=== PATIENT | female | born 1985 | race Caucasian/White ===

== ENCOUNTER → 2016-08-29 | Outpatient (CLI) | payer BC ==
[~2016-08-29] MED LIST: LEVOIUD INT UTER; MULTTAB58 PO
== END | disposition home or self-care (01) ==
LOC: C.LABSPEC 17:28
PROVIDERS: ATTEND Obstetrics & Gynecology
DX: N89.8 Other specified noninflammatory disorders of vagina (principal)

== ENCOUNTER → 2018-01-25 | Outpatient (CLI) | payer BC ==
[~2018-01-25] MED LIST changes: +LEVO1IUD2 INT UTER; -LEVOIUD INT UTER
== END | disposition home or self-care (01) ==
LOC: C.LAB 10:31
PROVIDERS: ATTEND Obstetrics & Gynecology
DX: N93.9 Abnormal uterine and vaginal bleeding, unspecified (principal); N92.6 Irregular menstruation, unspecified

== ENCOUNTER → 2018-02-05 | Outpatient (CLI) | payer BC | END | disposition home or self-care (01) | LOC: C.PAPS 13:25 | PROVIDERS: ATTEND Obstetrics & Gynecology | DX: Z01.419 Encounter for gynecological examination (general) (routine) without abnormal findings (principal) ==

== ENCOUNTER 2021-04-08 05:29 | Inpatient (IN) ==
--- NOTE | 2021-03-29 09:54 | Anesthesiology Consultation ---
Date of Service March 29, 2021 Assessment & Plan (1) Encounter for pre-operative examination: Chart Review Chart Review: Acceptable Risk for Surgery and Patient NOT seen in Pre Admission Testing Consults Requested none History Surgery Operation Date: 04/08/21 07:30 Proposed Procedures p Section (Delivery of Baby Through Abdominal Incision) - Rabia Jackson MD, FACOG s Bilateral Tubal Ligation - Rabia Jackson MD, FACOG Height/Weight Height: 5 ft 4 in Weight: 107.048 kg Allergies Allergy/AdvReac Type Severity Reaction Status Date / Time No Known Drug Allergies Allergy Verified 03/28/21 15:19 Medications Home Medications Medication Instructions Recorded Confirmed Last Taken prenat.vits,natividad,[id number] 1 tab PO QAM 09/03/20 03/28/21 03/25/21 0800 aspirin 81 mg tablet,delayed 81 mg PO QAM 12/03/20 03/28/21 03/25/21 08:00 release (Aspirin Low Dose) acetone (urine) test (Ketone Urine #50 ea 02/22/21 03/25/21 Unknown Test) blood sugar diagnostic (OneTouch #150 ea 02/22/21 03/25/21 Unknown Verio test strips) blood-glucose meter (OneTouch #1 ea 02/22/21 03/25/21 Unknown Verio Flex meter) lancets 33 gauge (OneTouch Delica #150 ea 02/22/21 03/25/21 Unknown Plus Lancet) ferrous sulfate 325 mg (65 mg 325 mg PO Q OTHER DAY 03/04/21 03/28/21 03/25/21 08:00 iron) tablet (iron) docusate sodium 100 mg capsule 100 mg PO QAM 03/28/21 03/28/21 Unknown Past Medical History Medical History Dental abscess HX Fracture of coccyx HX GERD (gastroesophageal reflux disease) BORDERLINE Gestational diabetes History of endometriosis Migraine HX PCB (post coital bleeding) Varicella Past Family History Family History Grandmother (Paternal) Diabetes Grandfather (Paternal) Myocardial infarction Pancreatic cancer Father Hypertension Hairy cell leukemia Grandfather (Maternal) Lymphoma Denies family history of Ovarian cancer Prostate cancer Breast cancer Colorectal cancer Past Surgical History Surgical History H/O laparoscopy diagnostic S/P wisdom tooth extraction Social History Smoking Status: Never smoker Do You Dip or Chew Tobacco: No Hx Alcohol Use: Yes Alcohol type: beer alcohol intake frequency: holidays/special occasions only Alcohol Intake Frequency Comment: WHEN NOT Hx Substance Use: No substance use type: does not use
[2021-04-08] MEDS ORDERED: CITRIC ACID/SODIUM CITRATE 15 ML UDC PO SCH (06:00)
[2021-04-08] MEDS ORDERED: ceFAZolin 3,000 MG in DEXTROSE 5% 50 ML IV SCH (06:00)
[2021-04-08] MEDS ORDERED: LACTATED RINGER'S 1,000 ML IV SCH ×4 (06:00→09:33)
--- NOTE | 2021-04-08 07:34 | History & Physical Bridge Note ---
Date of Service April 08, 2021 History & Physical Bridge Note I have examined the patient, reviewed the History & Physical and in the interval since the performance of the History & Physical I have noted the following changes of clinical significance: no changes noted
[2021-04-08] MEDS ORDERED: MoRPHine SULFATE PF 1 MG/ML 10 ML AMP/VIAL ONE (07:43)
[2021-04-08 07:46] LABS: Basophils # (auto) 0.04 K/uL (0-0.2); Basophils % (auto) 0.5 %; Eosinophils # (auto) 0.16 K/uL (0-0.5); Eosinophils % (auto) 1.9 %; Hematocrit (blood only) 36.5 % (37-47); Hemoglobin 12.5 g/dL (12.0-16.0); Immature Granulocytes # (auto) 0.05 K/uL (0.00-0.02); Immature Granulocytes % (auto) 0.6 %; Lymphocytes # (auto) 1.84 K/uL (1.2-3.4); Lymphocytes % (auto) 21.6 %; Mean Corpuscular Hemoglobin 30.8 pg (25-34); Mean Corpuscular Hgb Conc 34.2 g/dL (32-36); Mean Corpuscular Volume 89.9 fL (80-100); Mean Platelet Volume 13.6 fL (7.4-10.4); Monocytes # (auto) 0.45 K/uL (0.11-0.59); Monocytes % (auto) 5.3 %; Neutrophils # (auto) 5.97 K/uL (1.4-6.5); Neutrophils % (auto) 70.1 %; Platelet Count 122 K/uL (130-400); Platelet Estimate Normal (Normal); RDW Coefficient of Variation 14.2 % (11.5-14.5); RDW Standard Deviation 46.8 fL (36.4-46.3); Red Blood Count 4.06 M/uL (4.2-5.4); White Blood Count 8.51 K/uL (4.8-10.8)
[2021-04-08] MEDS ORDERED: LIDOCAINE 2% LOCAL 50 ML VIAL ONE (08:38)
--- NOTE | 2021-04-08 09:32 | Post Operative Brief Note ---
PG Immediate Post Op with CF Date of Surgery April 08, 2021 Pre & Post Diagnosis Operation Date: 04/08/21 07:30 Pre-Op Diagnosis: 1. 38 week twin IUP 2. Desires section, malpresentation of baby B 3. Desires Sterilization 4. AMA 5. Gestational Diabetes Post-Op Diagnosis: Same I identified the patient and participated in the time-out.: Yes Procedure Operation Date: 04/08/21 07:30 Actual Procedures 1. Primary Low Transverse Section 2. Modified [place] Bilateral Tubal Ligation Surgeon Rabia Jackson MD, FACOG Seat Builder Mahsa Estimated Blood Loss 800 Findings See Below viable female twins. apgars pending. normal uterus, tubes and ovaries bilaterally. Fluids 1000 Specimens Specimen Description: 1. Cord Blood Obtained 2. Placenta: Hold 3. Right and Left Portions of Fallopian Tubes Drains Peterson Catheter (Peterson catheter inserted without difficulty. Patent and draining clear yellow urine throughout procedure. ) Anesthesia Type Spinal Complications none Disposition Accompanied Patient To Recovery: No Disposition: L&D
--- NOTE | 2021-04-08 09:32 | Operative Report ---
PG Post Operative Report Pre & Post Diagnosis Operation Date: 04/08/21 07:30 Pre-Op Diagnosis: 1. 38+weeks Twin IUP 2. Desires section, malpresentation baby B 3. Desires sterilization 4. GDM 5. AMA Post-Op Diagnosis: Same I identified the patient and participated in the time-out.: Yes Procedure Operation Date: 04/08/21 07:30 Actual Procedures 1. Primary Low Transverse Section 2. Modified [place] Bilateral Tubal Ligation Surgeon Rabia Jackson MD, FACOG Spool Maker Mahsa Estimated Blood Loss 800 Findings See Below viable female twins, cephalic baby A, gillian breech baby B normal uterus, tubes and ovaries bilaterally Fluids 1000 Specimens cord blood x 2 portions of right and left fallopian tubes Drains cohen Anesthesia Type Spinal Complications none Disposition Accompanied Patient To Recovery: No Disposition: L&D Indications 35yo at 38+wks ega with twins presents for planned section due to malpresentation of baby B. She also desires permanent sterilization and is aware of risks, complications and alternatives. Patient notes no ctx, no rom, no vb. +FM x 2. Baby B has been transverse and due to such, pt desires planned c/s. She had covid screening last week for preop and it returned positive. Denies sx of illness. Description of Procedure The patient was taken to the operating room and identified. After adequate anesthesia was obtained, she was placed in the supine position with a leftward tilt on the operating table and prepped and draped in the usual sterile fashion. A cohen catheter had already been placed. The knife was used to create a Pfannensteil skin incision that was carried down to the underlying layer of fascia. The fascia was nicked in the midline and this opening was extended laterally using Guerrero scissors. Julieta clamps were placed on the superior and inferior aspect of the fascial incision tenting it upward and the underlying rectus muscles were dissected off the overlying fascia both sharply and bluntly using Guerrero scissors. The rectus muscles were bluntly in the midline. The peritoneal cavity was bluntly entered into. This opening was stretched. The bladder blade was placed. The vesicouterine peritoneum was elevated and opened up into and the bladder flap was created digitally and bladder blade was replaced. The knife was used to create a hysterotomy and this opening was stretched. The operators hand was placed through the hysterotomy and the bladder blade was removed. The head of baby A was elevated and flexed and with fundal pressure the head was delivered. The shoulders and body were rapidly delivered. The cord was clamped and cut and the infant's mouth and nares were bulb suction. The was handed off to the awaiting pediatricians. Cord blood was obtained. The typesetter perforator operator's hand was then placed t hrough the hysterotomy to palpate the baby B presenting part which was difficult. Therefore arom took place and buttocks presented and was elevated and with fundal pressure delivered. The baby was delivered to level of scapula and the arms were swept across the anterior midline. The head was flexed and delivered. The cord was clamped and cut and the infant's mouth and nares were bulb suction. The was handed off to the awaiting pediatricians. Cord blood was obtained. The placentas were manually expressed. The uterus was exteriorized and cleared of all clots and debris. Dilute IV Pitocin was begun. The uterine tone was improving. The hysterotomy was closed in a running interlocking fashion using 0 Vicryl followed by a second imbricating layer of 0 Vicryl. The hysterotomy was hemostatic. Attention was turned to the left fallopian tube that was followed out to its fimbriated end. The tube was elevated using a pari clamp and a knuckle of tube was doubly ligated with 2-0 plain suture and transected. The specimen was sent. The stumps were cauterized with the bovie. The right fallopian tube was identified to its fimbriated end, elevated, double ligated and transected in a similar fashion. The specimen was sent and the stump of tube was cauterized with the bovie.The pelvis was irrigated. The uterus was returned to the abdomen. The gutters were cleared of all clots and debris. The hysterotomy was reinspected and noted to be hemostatic as were the tubal ligation sites. The fascia was then closed in running fashion using 0 Vicryl. The subcutaneous fat was copiously irrigated and reapproximated using 2-0 chromic. The skin was closed in a subcuticular fashion using 4-0 Vicryl. At this point the procedure was terminated. The patient was transferred to the recovery room in stable condition. All sponge, lap and needle counts are correct x2. I attest to the content of the Intraoperative Record and any orders documented therein. Any exceptions are noted below. OB Procedure Charges 67912 [id number] Add on Tubal for C/S
[2021-04-08] MEDS ORDERED: DIPHTHERIA/TETANUS/PERTUSSIS 0.5 ML SYR/VIAL IM ONE (09:33)
[2021-04-08] MEDS ORDERED: PROMETHAZINE HCL 25 MG in SODIUM CHLORIDE 0.9% 50 ML IV PRN ×2 (09:33→09:34)
[2021-04-08] MEDS ORDERED: HYDROCORTISONE ACETATE 25 MG SUPP PR PRN (09:33)
[2021-04-08] MEDS ORDERED: MAGNESIUM HYDROXIDE SUSP 30 ML UDC PO PRN (09:33)
[2021-04-08] MEDS ORDERED: SUPERCREAM 0.870% 15 GM JAR EXT PRN (09:33)
[2021-04-08] MEDS ORDERED: SENNA 8.6 MG TAB PO PRN (09:33)
[2021-04-08] MEDS ORDERED: NON-FORMULARY MEDICATION (Ferrous Sulfate [Iron] 325 mg (65 mg iron) Tablet) PO SCH (09:33)
[2021-04-08] MEDS ORDERED: BENZOCAINE 20% AER SPR 82.5 GM CAN EXT PRN (09:33)
[2021-04-08] MEDS ORDERED: NALOXONE HCL 1 MG in SODIUM CHLORIDE 0.9% 1000ML 1,000 ML IV PRN (09:34)
[2021-04-08] MEDS ORDERED: MoRPHine SULFATE PF 1 MG/ML 10 ML AMP/VIAL INT SPINAL ONE (09:34)
[2021-04-08] MEDS ORDERED: ePHEDrine sulfate 50 MG/ML AMP IV PRN (09:34)
[2021-04-08] MEDS ORDERED: diphenhydrAMINE 50 MG/ML VIAL IV PRN (09:34)
[2021-04-08] MEDS ORDERED: NALOXONE HCL 0.08 MG in SYRINGE 1.8 ML IV PRN (09:34)
[2021-04-08] MEDS ORDERED: NALOXONE HCL 0.4 MG/1 ML VIAL/CARP IV PRN (09:34)
[2021-04-08] MEDS ORDERED: LACTATED RINGER'S 500 ML IV PRN (09:34)
[2021-04-08] MEDS ORDERED: NALBUPHINE HCL INJ 10 MG/ML AMP IV PRN (09:34)
[2021-04-08] MEDS ORDERED: ONDANSETRON INJ 2 MG/ML 2 ML VIAL IV PRN (09:34)
[2021-04-08] MEDS ORDERED: NO NARCOTICS OR SEDATIVES SCH (09:45)
[2021-04-08] MEDS ORDERED: SODIUM CHLORIDE 0.9% 1000ML 1,000 ML IV SCH (09:45)
[2021-04-08] MEDS ORDERED: DC INTRASPINAL MORPHINE SCH (09:45)
--- NOTE | 2021-04-08 10:47 | Anesthesiology Progress Note ---
Date of Service April 08, 2021 Anesthesia Post Procedure Vital Signs Vital Signs: Temp Pulse Resp BP BP Pulse Ox 04/08/21 10:25 18 130/82 97 04/08/21 10:15 20 126/87 95 04/08/21 10:05 20 117/74 04/08/21 09:55 20 124/73 04/08/21 09:45 36.5 C 18 130/68 98 04/08/21 07:20 37 C 18 04/08/21 05:59 36.9 C 89 18 140/84 Transfer of Care Handoff Completed per policy Notes Mental Status: alert / awake / arousable Patient Amnestic to Procedure: Yes Nausea / Vomiting: adequately controlled Pain: adequately controlled Airway Patency, RR, SpO2: stable & adequate BP & HR: stable & adequate Hydration State: stable & adequate Neuraxial Anesthesia: was administered and sensory block is resolving Anesthetic Complications: no major complications apparent
[2021-04-08] MEDS ORDERED: ONDANSETRON INJ 2 MG/ML 2 ML VIAL ONE (10:55)
[2021-04-08] MEDS ORDERED: PHENYLEPHRINE 100MCG/ML 5ML SYR ONE (10:55)
[2021-04-08] MEDS ORDERED: OXYTOCIN 10 UNITS/ML VIAL ONE (10:55)
[2021-04-08] MEDS: KETOROLAC 30 MG/ML VIAL IV PRN (12:36)
[2021-04-08] MEDS: SIMETHICONE 80 MG CHEW PO SCH ×3 (14:36→20:53)
[2021-04-08] MEDS: OXYTOCIN 20 UNITS in LACTATED RINGER'S 1,000 ML IV SCH ×2 (15:32→23:44)
[2021-04-08] MEDS ORDERED: SODIUM CHLORIDE 0.9% 500 ML IV ONE (20:41)
[2021-04-08] MEDS: DOCUSATE SODIUM 100 MG CAP PO SCH (20:53)
[2021-04-08 21:06] LABS: Hematocrit (blood only) 30.1 % (37-47); Hemoglobin 10.2 g/dL (12.0-16.0); Mean Corpuscular Hemoglobin 30.5 pg (25-34); Mean Corpuscular Hgb Conc 33.9 g/dL (32-36); Mean Corpuscular Volume 90.1 fL (80-100); Mean Platelet Volume 12.1 fL (7.4-10.4); Platelet Count 108 K/uL (130-400); RDW Coefficient of Variation 14.7 % (11.5-14.5); RDW Standard Deviation 48.7 fL (36.4-46.3); Red Blood Count 3.34 M/uL (4.2-5.4)
[2021-04-09] MEDS: KETOROLAC 30 MG/ML VIAL IV PRN (02:54)
[2021-04-09] MEDS ORDERED: diphenhydrAMINE 50 MG/ML VIAL IV PRN (03:36)
[2021-04-09] MEDS ORDERED: ONDANSETRON INJ 2 MG/ML 2 ML VIAL IV PRN (03:36)
[2021-04-09] MEDS ORDERED: diphenhydrAMINE Capsule 25 MG CAP PO PRN (03:36)
--- NOTE | 2021-04-09 07:58 | Obstetrical Progress Note ---
Date of Service April 09, 2021 Assessment & Plan (1) care following delivery: stable doing well. cbc checked last pm when urine output was low, did get two 500cc boluses and urine picked up to 300cc/10hr and so cohen was removed this am. await spont void. enc ambulation. po pain meds and adv diet. hgb pending for this am Day #:: 1 Subjective Ambulation: ambulating normally Passing Gas:: Yes Diet Tolerance:: regular diet Lochia:: Small Feeding Type:: breast feeding no pain issues, awaiting void, cohen was just out this am, no cp or sob. feels well. Constitutional: + as per Subjective / HPI Physical Exam Constitutional WD/WN, vitals as above Respiratory normal respiratory effort, lungs clear to auscultation Cardiovascular Rate/Rhythm: regular rate and regular rhythm Gastrointestinal (Abdomen) Inspection/Auscultation: abdomen normal to inspection and + abdominal surgical incision (c/d/i) Percussion/Palpation: abdomen soft Fundus firm 1cm down Musculoskeletal nt calves +1 edema Neurologic grossly normal Psychiatric A+Ox3, euthymic affect Results & Data ([facility]) Vital Signs (Past 12 Hours) Vital Signs Temp Pulse Resp BP BP Pulse Ox 04/09/21 03:05 98.1 F 72 16 128/76 97 04/09/21 02:05 18 96 04/09/21 01:05 16 96 04/09/21 00:05 98.1 F 76 16 123/78 97 04/08/21 22:15 18 99 04/08/21 21:15 18 100 04/08/21 20:15 18 99 04/08/21 20:07 98.1 F 74 18 128/78 100
[2021-04-09 08:22] LABS: Hematocrit (blood only) 29.6 % (37-47); Mean Corpuscular Hemoglobin 30.8 pg (25-34); Mean Corpuscular Hgb Conc 33.8 g/dL (32-36); Mean Corpuscular Volume 91.1 fL (80-100); Platelet Count 108 K/uL (130-400); RDW Coefficient of Variation 14.8 % (11.5-14.5); RDW Standard Deviation 49.1 fL (36.4-46.3); Red Blood Count 3.25 M/uL (4.2-5.4); White Blood Count 8.37 K/uL (4.8-10.8)
[2021-04-09 08:23] LABS: Basophils # (auto) 0.02 K/uL (0-0.2); Basophils % (auto) 0.2 %; Eosinophils # (auto) 0.08 K/uL (0-0.5); Immature Granulocytes # (auto) 0.03 K/uL (0.00-0.02); Immature Granulocytes % (auto) 0.4 %; Lymphocytes # (auto) 1.39 K/uL (1.2-3.4); Lymphocytes % (auto) 16.6 %; Monocytes # (auto) 0.42 K/uL (0.11-0.59); Neutrophils # (auto) 6.43 K/uL (1.4-6.5); Neutrophils % (auto) 76.8 %
[2021-04-09] MEDS ORDERED: oxyCODONE/ACETAMINOPHEN 5mg/325mg TAB PO PRN (08:57)
[2021-04-09] MEDS ORDERED: MEPERIDINE HCL 50 MG/ML CARP IV PRN (08:57)
[2021-04-09] MEDS ORDERED: KETOROLAC 30 MG/ML VIAL IV PRN (08:57)
[2021-04-09] MEDS ORDERED: DOCUSATE SODIUM 100 MG CAP PO SCH (09:00)
[2021-04-09] MEDS ORDERED: ASPIRIN 81 MG ECTAB PO SCH (09:00)
[2021-04-09] MEDS ORDERED: NON-FORMULARY MEDICATION (Prenat.Vits,Cal,Min-Iron-Folic tablet) PO SCH (09:00)
[2021-04-09] MEDS: DOCUSATE SODIUM 100 MG CAP PO SCH ×2 (09:14→21:06)
[2021-04-09] MEDS: IBUPROFEN 600 MG TAB PO PRN ×3 (09:14→21:06)
[2021-04-09] MEDS: SIMETHICONE 80 MG CHEW PO SCH ×4 (09:15→21:56)
[2021-04-09] MEDS: PRENATAL VITAMIN 1 TAB PO SCH (09:15)
[2021-04-09] MEDS: FERROUS SULFATE 325 MG TAB PO SCH (09:15)
[2021-04-09] MEDS: ACETAMINOPHEN 325 MG TAB PO PRN ×2 (12:18→17:59)
[2021-04-09] MEDS ORDERED: bisacodyL 5 MG TABEC PO SCH (20:00)
[2021-04-10] MEDS: IBUPROFEN 600 MG TAB PO PRN ×4 (01:26→20:32)
[2021-04-10] MEDS: ACETAMINOPHEN 325 MG TAB PO PRN ×3 (03:56→19:47)
--- NOTE | 2021-04-10 08:47 | Obstetrical Progress Note ---
Date of Service April 10, 2021 Assessment & Plan (1) care following delivery: continue current care plan. doing well with OTC pain meds. discharge once babies are ready for discharge Subjective Ambulation: ambulating normally Voiding: no voiding problems Passing Gas:: Yes Diet Tolerance:: regular diet Lochia:: Small Feeding Type:: breast feeding pain well controlled with ibuprofen and tylenol Review of Systems All systems reviewed & are unremarkable except as noted in HPI & below Physical Exam Constitutional WD/WN, vitals as above Gastrointestinal (Abdomen) normal bowel sounds, soft, nontender, no hepatosplenomegaly appropriate post-op tenderness incision dry and intact. Psychiatric A+Ox3, euthymic affect Genitourinary OB Exam Abdomen: + fundal height Fundus: + firm and + relation to umbilicus (3 below); not tender Results & Data ([facility]) Vital Signs (Past 12 Hours) Vital Signs Temp Pulse Resp BP Pulse Ox 04/10/21 07:41 98.2 F 87 18 144/78 H 98 04/10/21 03:25 97.5 F L 82 18 146/84 H 99 04/09/21 23:33 98.2 F 94 H 20 135/78 97
[2021-04-10] MEDS: FERROUS SULFATE 325 MG TAB PO SCH (09:13)
[2021-04-10] MEDS: PRENATAL VITAMIN 1 TAB PO SCH (09:13)
[2021-04-10] MEDS: SIMETHICONE 80 MG CHEW PO SCH ×4 (09:13→19:47)
[2021-04-10] MEDS: DOCUSATE SODIUM 100 MG CAP PO SCH ×2 (09:13→19:47)
[2021-04-10] MEDS ORDERED: bisacodyL 10 MG SUPP PR PRN (09:26)
[2021-04-10 09:31] LABS: Hematocrit (blood only) 29.2 % (37-47)
[2021-04-11] MEDS: IBUPROFEN 600 MG TAB PO PRN ×3 (01:23→12:37)
[2021-04-11] MEDS: ACETAMINOPHEN 325 MG TAB PO PRN (05:23)
--- NOTE | 2021-04-11 06:41 | Obstetrical Progress Note ---
Date of Service April 11, 2021 Assessment & Plan (1) care following delivery: Continue routine care. Doing better with breast feeding. Patient would like to go home today if babies are d/c. Await peds evaluation. Subjective Ambulation: ambulating normally Voiding: no voiding problems Passing Gas:: Yes Diet Tolerance:: regular diet Lochia:: Small Feeding Type:: breast feeding no uri symptoms. Notes breast feeding is going better. Physical Exam Constitutional WD/WN, vitals as above Neck trachea midline, no thyromegaly Cardiovascular Extremities: + edema (+1); no calf tenderness Gastrointestinal (Abdomen) soft, nt, nd ff at u incision c/d/i Results & Data ([facility]) Vital Signs (Past 12 Hours) Vital Signs Temp Pulse Resp BP Pulse Ox 04/11/21 00:10 36.5 C 73 18 147/87 H 04/10/21 19:25 36.6 C 96 H 18 151/84 H 98
[2021-04-11] MEDS: FERROUS SULFATE 325 MG TAB PO SCH (08:13)
[2021-04-11] MEDS: SIMETHICONE 80 MG CHEW PO SCH ×2 (08:13→12:37)
[2021-04-11] MEDS: DOCUSATE SODIUM 100 MG CAP PO SCH (08:13)
[2021-04-11] MEDS: PRENATAL VITAMIN 1 TAB PO SCH (08:13)
--- NOTE | 2021-04-15 12:58 | Discharge Summary ---
Date of Service Day of admission: April 08, 2021 Day of discharge: March Admission HPI Per Admitting Provider 35yo at 38+wks ega TWINS for planned c/s and desires tubal ligation. Preganancy also complicated by AMA and GDM. Malpresentation of twin B, prompts pt desires for c/section for this delivery. Discharge Data Consultations 04/08/21 05:50 Consult Anesthesiology Stat Procedures Performed Operation Date: 04/08/21 07:30 Actual Procedures Primary Low Transverse Section and Modified [place] Bilateral Tubal Ligation. Hospital Course (1) care following delivery: (2) Elderly multigravida: (3) Dichorionic diamniotic twin : (4) Gestational diabetes mellitus (GDM) affecting , antepartum: The patient underwent the above stated procedures without incident and her postoperative course and recovery was uncomplicated. On her postoperative day #3 she was tolerating a regular diet, voiding spontaneously, ambulating without problem and was using oral meds for adequate pain control. Her postoperative hemoglobin was 10. She was given written and verbal discharge instructions and told to followup in office at 6wks. She was given appropriate pain medicine prescriptions. Coding Level of Care Code None Diagnoses care following delivery Z39.2 Elderly multigravida O09.529 Dichorionic diamniotic twin O30.049 Gestational diabetes mellitus (GDM) affecting , antepartum O24.419
--- NOTE | 2021-04-19 14:18 | Coding Query ---
CODING QUERY To promote full compliance with coding requirements relating to patient care, provider participation is requested in all cases of construction or leak gang laborer uncertainty. Please assist us with the question(s) below: Coding Question(s): There is documentation on the Operative Report of, "She had covid screening last week for preop and it returned positive. Denies sx of illness" and the Anesthesia Record also documents Covid Test Positive. Please Specify below, in your clinical opinion. ( x ) Positive Covid test last week means patient is Asymptomatic Covid-19 Infection ( ) Positive Covid test last week means patient has History only of Covid-19 Infection ( ) Positive Covid test last week means Other: Please Specify Physician's Response(s): Thank you Sunni Jasmine Principal Diagnosis: "that condition established after study, to be chiefly responsible for occasioning the admission of the patient to the hospital for care." Co-Existing Principal Diagnosis: "when two or more diagnoses equally meet the criteria for principal diagnosis as determined by the circumstances of admission, diagnostic work up, and/or therapy provided, and the Alphabetic Index, Tabular List, or another coding guideline does not provide sequencing direction, any one of the diagnoses may be sequenced first." "When the physician has documented what appears to be a current diagnosis in the body of the record, but has not included the diagnosis in the final diagnostic statement, the physician should be asked whether the diagnosis should be added." (Source Coding [facility] 2 QTR90. p3-4) IDALMIS
== END 2021-04-11 14:55 | disposition home or self-care (01) | DRG 783 ==
LOC: 4W 05:29 → EDSTATUS 07:30 → 3E 09:24 → EDSTATUS 12:30